=== PATIENT | female | born 2005 | race Caucasian/White ===

== ENCOUNTER 2025-09-23 13:38 | Emergency (ER) | payer SELFPAY ==
--- NOTE | 2025-09-23 13:39 | ED.URI ---
HPI - URI/Sore Throat General Chief Complaint: Nausea/Vomiting/Diarrhea Stated Complaint: Body Aches/Nausea Time Seen by Provider: 09/23/25 13:39 Source: patient Mode of arrival: ambulatory Limitations: no limitations History of Present Illness HPI Narrative: Karla is a 20-year-old female patient presenting to the clinic today with complaints of feeling feverish, body aches, and nausea x3 days. Last menstrual period was 1 month ago. Is supposed to start her period tomorrow. Is sexually active. Denies any sore throat or URI symptoms. No urinary symptoms or vaginal discharge Related Data Allergies Allergy/AdvReac Type Severity Reaction Status Date / Time No Known Allergies Allergy Verified 09/23/25 13:47 Review of Systems Review of Systems: Pertinent positives per HPI. Patient denies any rash, headache, visual changes, dizziness, cough, runny nose, sore throat, shortness of breath, chest pain, palpitations, vomiting, diarrhea, constipation, abdominal pain, or any urinary issues. PMFSH Comments At the time of my signature, I reviewed and agree with the nursing past medical, surgical, social, and family history. There is no relevant family history pertinent to the patient complaint. Exam Narrative: General: Well-developed, well nourished, in no apparent distress Head: Normocephalic, atraumatic Eyes: Pupils equally round and reactive to light bilaterally, EOM intact, sclera and conjunctive clear, no discharge, lids normal Ears: TMs intact and clear, ear canals clear, no drainage, grossly hearing normal. Nose: Nares patent, no discharge, no inflammation, no sinus tenderness. Mouth: Oropharynx without lesions or masses, good dentition, MMM. Neck: Supple, trachea midline, no enlargement of anterior or posterior cervical nodes, no thyroid masses or goiter palpable. Cardio: Regular rate and rhythm, s1 and s2 normal, no murmur appreciated. Resp: Clear to auscultation bilaterally anteriorly and posteriorly, no rhonchi, rales, wheezing or rubs Abdomen: Soft, pliable, bowel sounds present in all quadrants, non-tender to palpation, no organomegly, no CVAT tenderness. Course Course Level of Care: Express Care Visit Vital Signs Vital signs: Vital Signs Temperature 37.0 C 09/23/25 13:44 Pulse Rate 106 H 09/23/25 13:44 Respiratory Rate 20 09/23/25 13:44 Blood Pressure 129/72 09/23/25 13:44 Pulse Oximetry 98 09/23/25 13:44 Oxygen Delivery Room Air 09/23/25 13:44 Temperature 37.0 C 09/23/25 13:44 Pulse Rate 106 H 09/23/25 13:44 Respiratory Rate 20 09/23/25 13:44 Blood Pressure 129/72 09/23/25 13:44 Pulse Oximetry 98 09/23/25 13:44 Oxygen Delivery Room Air 09/23/25 13:44 MDM MDM Narrative Medical decision making narrative: At the time of visit patient is resting comfortably on the exam table. Patient appears to be nontoxic. Complaints of feeling feverish, body aches, and nausea x3 days. Last menstrual period was 1 month ago. Is supposed to start her period tomorrow. Is sexually active. Denies any sore throat or URI symptoms. No urinary symptoms or vaginal discharge. Denies any vomiting or abdominal pain. On exam patient has bilateral TMs intact and clear, no nasal drainage, no anterior turbinate inflammation, oral pharynx normal, no cervical lymphadenopathy, lung sounds are clear, heart rates regular rate rhythm, abdomen soft pliable, bowel sounds present all 4 quadrants. COVID, influenza, and bedside test ordered. Labs: COVID, flu, and bedside test was performed. All testing was negative in the clinic today. Plan: I suspect patient nausea with body aches/nausea. Will send in prescription for ondansetron for nausea. Work note was given.. Supportive measures were discussed with the patient and they voiced understanding discharge instructions and agrees to treatment plan. Return precautions reviewed Differential Diagnosis Differential Diagnosis: Differential diagnostic considerations for upper respiratory infection include upper respiratory infection, croup, otitis media, sinusitis, viral infection, bronchitis, influenza, pharyngitis, strep, uvulitis. Discharge Plan Discharge Clinical Impression: Generalized body aches, Nausea Patient Disposition: Home Condition: Stable Instructions: Antibiotic Form, Acute Nausea and Vomiting (ED) Additional Instructions: COVID, flu, and bedside test were all negative in the clinic today. Take prescription medications only as prescribed-ondansetron Increase fluids and stay well hydrated May take Tylenol or motrin as directed on bottle for pain/fever May use Flonase 1 spray in each nare daily May take OTC antihistamines such as Zyrtec or Claritin daily as directed on bottle May apply Vicks vapor rub to chest to open sinuses Sinus rinses for congestion Cepacol spray, cough drops, throat lozenges, warm tea with honey/lemon, gargle salt water to soothe throat BRAT diet for diarrhea Clear liquids x 24 hours then advance as tolerated for nausea/vomiting Go to the ED if you develop a worsening in your condition- high fever not controlled by Tylenol or Motrin, dehydration, weakness, lethargy, shortness of breath, or chest pain. Follow up with your PCP in 3-5 days if symptoms persist. Patient Language: Indonesian Prescriptions: New ondansetron 8 mg tablet,disintegrating 8 mg PO Q8H PRN (Reason: nausea and vomiting) 3 Days Qty: 10 0RF Follow-up/Referrals: UNKNOWN,DOCTOR [Non-Staff] Stand Alone Forms: Work/School Release IP Time of Disposition: 14:09 Quality NIHSS Nursing Documentation ED NIHSS nursing documentation: reviewed/agree
[2025-09-23 13:44] VITALS: BP 129/72; PULSE 106; RESP 20; TEMP 37; O2SAT 98
[2025-09-23 14:07] LABS: BEDSIDEPREGUCG Negative (Negative); EDCOVIDSCREEN Negative (Negative); EDINFLUASCREEN Negative (Negative); EDINFLUBSCREEN Negative (Negative)
== END 2025-09-23 14:20 | disposition home or self-care (01) ==
PROVIDERS: Emergency Provider Nurse Practitioner Family
DX: R52 Pain, unspecified (principal); R11.0 Nausea; Z20.822 Contact with and (suspected) exposure to COVID-19
CPT/HCPCS: 81025; 87426; 87804; 99203; G0463